=== PATIENT | male | born 1955 | race Caucasian/White ===

== ENCOUNTER → 2020-12-24 | Outpatient (CLI) | payer MEDICARE, OTHER ==
[~2020-12-24] VITALS: Ht 167.7 cm; Wt 84.0 kg
[~2020-12-24] MED LIST: ACETAMINOPHEN 500 MG TAB (TYLENOL) PO PRN; CASIRIVIMAB/IMDEVIMAB 1,200 MG in NS (IVPB) 250 ML IV ONE; EPINEPHrine INJECTION 1 MG/ML AMP IM PRN; ONDANSETRON 4 MG/2 ML (SDV) Z0FRAN IV PRN; diphenhydrAMINE 50 MG/ML INJ (BENADRYL) IV PRN
[2020-12-24 12:23] VITALS: BP 138/68
[2020-12-24 14:13] VITALS: BP 141/76
== END ==
LOC: INFUSION 12:27
PROVIDERS: ATTEND Nurse Practitioner Family
DX: U07.1 COVID-19 (principal)